=== PATIENT | female | born 1955 | race Caucasian/White ===

== ENCOUNTER 2025-04-26 15:21 | Emergency (ER) | payer OTHER ==
[~2025-04-26] VITALS: Ht 157.5 cm; Wt 104.6 kg
[2025-04-26] MEDS ORDERED: ONDANSETRON HCL 4 MG/2 ML VIAL IVP PRN (15:30)
[2025-04-26] MEDS ORDERED: ACETAMINOPHEN 325 MG TABLET PO PRN (15:30)
[2025-04-26] MEDS ORDERED: BISACODYL 10 MG RECTAL RECTAL SUPPOSITORY PR PRN (15:30)
[2025-04-26 15:44] LABS: PLATELET COUNT (AUTO) 262 K/uL (150-450); RED BLOOD CELL COUNT(AUTO) 4.06 MIL/uL (4.00-5.20); RED CELL DISTRIBUTION WIDTH 15.1 % (11.5-14.5); WHITE BLOOD COUNT (AUTO) 10.6 K/uL (4.5-11.0)
[2025-04-26] MEDS ORDERED: INSULIN LISPRO 100 UNITS/ML SQ PRN (15:45)
[2025-04-26] MEDS ORDERED: DEXTROSE 50%-WATER 25 GM/50 ML SYRINGE IVP PRN (15:45)
[2025-04-26 15:55] VITALS: TEMP 98.2
[2025-04-26 15:55] LABS: CALCIUM, TOTAL 8.3 mg/dL (8.8-10.5); CREATININE 1.26 mg/dL (0.60-1.30); GLOMERULAR FILTR. RATE CALC 42.0 mL/min (>60); GLUCOSE,RANDOM 153.0 mg/dL (70-110); SODIUM SERUM 139.0 mmol/L (136-145); UREA NITROGEN, BLOOD 27.0 mg/dL (7-18)
[2025-04-26] MEDS ORDERED: 0.9% SODIUM CHLORIDE 10 ML SYRINGE IVP ONE (15:57)
[2025-04-26] MEDS ORDERED: SODIUM CHLORIDE 0.9% 100 ML ONE (15:57)
[2025-04-26] MEDS ORDERED: IOHEXOL 350 MG/ML 100 ML VIAL ONE (15:57)
[2025-04-26 16:00] LABS: ASPARTATE AMINOTRANSFERASE 16.0 U/L (15-37); CHOL/HDL RATIO 4.3 (3.9-5.7); LDL CHOL (CALC.) 105.0 mg/dL (0-130); TOTAL PROTEIN, SERUM 7.0 g/dL (6.4-8.2)
[2025-04-26 16:02] LABS: TROPONIN I-HIGH SENSITIVITY 10 ng/L (<51)
[2025-04-26 16:34] LABS: APPEARANCE,URINE CLEAR (CLEAR); GLUCOSE, URINE (UA) NEGATIVE (NEGATIVE); LEUKOCYTE ESTERASE ,URINE MODERATE (NEGATIVE); NITRATE,URINE POSITIVE (NEGATIVE); OCCULT BLOOD,URINE NEGATIVE (NEGATIVE); PH,URINE DRUG SCREEN 5.5 (5.0-8.0); SPECIFIC GRAVITIY, URINE 1.034 (1.003-1.030)
[2025-04-26] MEDS: HEPARIN SODIUM,PORCINE 5,000 UNITS/ML VIAL SQ SCH (16:38)
[2025-04-26 16:41] LABS: ALCOHOL, URINE DRUG SCREEN NEGATIVE (NEGATIVE); AMPHET/METH SCREEN,URINE NEGATIVE (NEGATIVE); BARBITURATE SCREEN, URINE NEGATIVE (NEGATIVE); CANNABINOID SCREEN,URINE NEGATIVE (NEGATIVE); COCAINE SCREEN,URINE NEGATIVE (NEGATIVE); METHADONE SCREEN, URINE NEGATIVE (NEGATIVE)
[2025-04-26 16:43] LABS: SQUAMOUS EPITHELIAL CELL,UR Few /LPF (None Seen)
[2025-04-26] MEDS: ATORVASTATIN CALCIUM 40 MG TABLET PO ONE (18:08)
[2025-04-26] MEDS: ASPIRIN 325 MG TABLET PO ONE (18:08)
[2025-04-26 19:05] VITALS: BP 130/62; PULSE 65; RESP 18; O2SAT 96
[2025-04-26] MEDS ORDERED: DOCUSATE SODIUM 100 MG CAPSULE PO SCH (21:00)
[2025-04-26] MEDS ORDERED: CHLORHEXIDINE GLUCONATE 2% TOWELETTE [2'S/6'S] TP SCH (22:00)
[2025-04-27] MEDS ORDERED: FAMOTIDINE 20 MG TABLET PO SCH (09:00)
== END 2025-04-26 19:45 | disposition short-term general hospital (02) ==
LOC: EMS 15:25 → UNDOADMIN 15:27 → EDH 15:27
DX: I63.9 Cerebral infarction, unspecified (principal); R47.81 Slurred speech; E78.5 Hyperlipidemia, unspecified; I10 Essential (primary) hypertension; E11.9 Type 2 diabetes mellitus without complications; E66.9 Obesity, unspecified; Z90.49 Acquired absence of other specified parts of digestive tract
CPT/HCPCS: 99291; 70496; 71045; 80061; 80053; 83036; 84484; 85025; 85610; 85730; 87077 ×2; 87086; 36415; 70498; 82948; 93005; 96372; 80307; 70450; 81001; Q9967; J1644; J7050